=== PATIENT | male | born 1990 | race Caucasian/White ===

== ENCOUNTER 2016-09-25 23:20 | Emergency (ER) | payer SELFPAY ==
[2016-09-26] MEDS ORDERED: Ibuprofen TAB* 400 MG PO ONE (01:40)
[2016-09-26 02:08] VITALS: BP 130/58
--- NOTE | 2016-09-26 19:57 | ED ---
Han Vila Billy, scribed for Renzo Crow MD on 09/26/16 at 0139 . Substance Abuse/Use - HPI Summary HPI Summary: Patient is a 26 year-old male coming to [facility] with concerns of heroin overdose and URI symptoms. He states that he uses heroin intermittently, last used 3 hours [employer]. He uses clean needles. He reports hot flashes, sweating, nausea, vomiting, headache, and subjective fever. - History Of Current Complaint Chief Complaint: EDSubstanceAbuse Stated Complaint: HEROIN/NOT FEELING WELL Time Seen by Provider: 09/26/16 00:40 Hx Obtained From: Patient Ingestion History: Type/Name Of Drug - heroin Overdose Characteristics: IV Timing Of Abuse: Intermittent Severity Initially: Moderate Severity Currently: Moderate Aggravating Factor(s): Nothing Alleviating Factor(s): Nothing Associated Signs And Symptoms: Diaphoretic, Tremulous, Nausea, Vomiting, Other: - fever - Allergies/Home Medications Allergies/Adverse Reactions: Allergies Allergy/AdvReac Type Severity Reaction Status Date / Time No Known Allergies Allergy Verified 09/26/16 00:29 PMH/Surg Hx/FS Hx/Imm Hx Musculoskeletal History: Reports: Hx of Fracture(s) Psychiatric History: Reports: Hx Substance Abuse - Immunization History Date of Tetanus Vaccine: utd Infectious Disease History: No Infectious Disease History: Denies: Traveled Outside the [place] in Last 30 Days - Family History Known Family History: Negative: Cardiac Disease, Diabetes - Social History Alcohol Use: Occasionally Substance Use Type: Reports: Heroin Substance Use Comment - Amount & Last Used: Sober since 12/26/13 Smoking Status (MU): Current Every Day Smoker Review of Systems Positive: Fever, Skin Diaphoresis Negative: Erythema Negative: Sore Throat Negative: Chest Pain Negative: Shortness Of Breath, Cough Positive: Vomiting, Nausea. Negative: Abdominal Pain Negative: Myalgia, Edema Negative: Rash Positive: Headache All Other Systems Reviewed And Are Negative: Yes Physical Exam - Summary Physical Exam Summary: Constitutional: Well-developed, Well-nourished, Alert. (-) Distressed Skin: Warm, Dry HENT: Normocephalic; Atraumatic Eyes: Conjunctiva normal Neck: Musculoskeletal ROM normal neck. (-) JVD, (-) Stridor, (-) Tracheal deviation Cardio: Rhythm regular, rate normal, Heart sounds normal; Intact distal pulses; The pedal pulses are 2+ and symmetric. Radial pulses are 2+ and symmetric. (-) Murmur Pulmonary/Chest wall: Effort normal. (-) Respiratory distress, (-) Wheezes, (-) Rales Abd: Soft, (-) Tenderness, (-) Distension, (-) Guarding, (-) Rebound Musculoskeletal: (-) Edema Lymph: (-) Cervical adenopathy Neuro: Alert, Oriented x3 Psych: Mood and affect Normal Triage Information Reviewed: Yes Vital Signs On Initial Exam: Initial Vitals Temp Pulse Resp BP Pulse Ox 99.4 F 108 16 140/69 98 09/25/16 23:25 09/25/16 23:25 09/25/16 23:25 09/25/16 23:25 09/25/16 23:25 Vital Signs Reviewed: Yes - Lex Coma Scale Coma Scale Total: 15 Diagnostics - Vital Signs Vital Signs Temp Pulse Resp BP Pulse Ox 09/26/16 00:29 99.5 F 80 18 125/74 97 09/25/16 23:25 99.4 F 108 16 140/69 98 - Laboratory Lab Statement: Any lab studies that have been ordered have been reviewed, and results considered in the medical decision making process. Course/Dx - Course Assessment/Plan: 26 [facility] and URI-like symptoms. Patient was given ibuprofen in the ED. Patient will be discharged home to follow up with PCP. - Diagnoses Provider Diagnoses: URI (upper respiratory infection) Discharge - Discharge Plan Condition: Stable Disposition: HOME Patient Education Materials: Upper Respiratory Infection (ED) Forms: *Work Release Referrals: [facility] PHYSICIAN REFERRAL [Outside] Additional Instructions: RETURN TO THE EMERGENCY DEPARTMENT WITH WORSENING SYMPTOMS SUCH STIFF NECK, FEVERS, CHILLS, CHEST PAIN, OR SHORTNESS OF BREATH. The documentation as recorded by the Han tierney Billy accurately reflects the service I personally performed and the decisions made by , Renzo Crow MD.
== END 2016-09-26 02:08 | disposition home or self-care (01) ==
LOC: ED 23:20
DX: J06.9 Acute upper respiratory infection, unspecified (principal); R11.2 Nausea with vomiting, unspecified; R25.1 Tremor, unspecified; R51 Headache; R50.9 Fever, unspecified; F17.210 Nicotine dependence, cigarettes, uncomplicated
CPT/HCPCS: 99282; A9270-GY

== ENCOUNTER 2019-08-21 18:31 | Emergency (ER) | payer SELFPAY ==
[2019-08-21] MEDS ORDERED: Ketorolac INJ* 30 MG/ML 1 ML VIAL IV PUSH ONE (20:21)
[2019-08-21] MEDS ORDERED: Pantoprazole IV* 40 MG IV ONE (20:21)
[2019-08-21] MEDS ORDERED: Ondansetron INJ* 2 MG/ML VIAL IV ONE (20:21)
[2019-08-21] MEDS ORDERED: NS 0.9% 1000 ML** 1,000 ML IV ONE (20:21)
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
[2019-08-21 20:54] LABS: Urine Appearance Clear; Urine Bilirubin Negative (Negative); Urine Blood Negative (Negative); Urine Color Yellow; Urine Glucose Negative (Negative); Urine Ketones Negative (Negative); Urine Nitrite Negative (Negative); Urine Protein Negative (Negative); Urine Specific Gravity 1.027 (1.010-1.030); Urine Urobilinogen Negative (Negative)
[2019-08-21 21:05] LABS: ABS Lymphocytes 1.3 10^3/ul (1.0-4.8); ABS Monocytes 0.5 10^3/ul (0-0.8); ABS Neutrophils 3.2 10^3/ul (1.5-7.7); Eosinophil % 0.3 %; Hematocrit 46 % (42-52); Lymphocyte % 25.1 %; Mean Corpuscular HGB Conc 35 g/dL (31-36); Mean Corpuscular Hemoglobin 30 pg (27-31); Mean Corpuscular Volume 86 fL (80-94); Mean Platelet Volume 7.1 fL (7.4-10.4); Nucleated Red Blood Cells % 0.1; Platelet Count 185 10^3/uL (150-450); Red Blood Count 5.33 10^6 /uL (4.18-5.48); Red Cell Distribution Width 13 % (10-15)
[2019-08-21 21:08] LABS: Influenza B Molecular POSITIVE (Negative)
[2019-08-21 21:21] LABS: Albumin 4.2 g/dL (3.2-5.2); Albumin/Globulin Ratio 1.4 (1-3); BUN/Creatinine Ratio 15.1 (8-20); C Reactive Protein 11.07 mg/L (<8.01); Calcium 9.2 mg/dL (8.6-10.3); EGFR African American 128.1 (>60); EGFR Non-African American 105.9 (>60); Globulin 2.9 g/dL (2-4); Potassium 3.6 mmol/L (3.5-5.0); Total Bilirubin 0.5 mg/dL (0.2-1.0); Total Protein 7.1 g/dL (6.4-8.9)
[2019-08-21] MEDS ORDERED: Acetaminophen TAB* 325 MG PO ONE (21:37)
[2019-08-21 22:40] VITALS: BP 114/69
== END 2019-08-21 22:39 | disposition home or self-care (01) ==
LOC: ED 18:31
DX: J11.1 Influenza due to unidentified influenza virus with other respiratory manifestations (principal); F17.200 Nicotine dependence, unspecified, uncomplicated
CPT/HCPCS: 36415; 71045; 80053; 81003; 83605; 83690; 85025; 86140; 96361; 96374; 96375; 99283; A9270-GY; J1885; J2405

== ENCOUNTER 2019-09-19 13:33 | Emergency (ER) | payer SELFPAY ==
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
[2019-09-19] MEDS ORDERED: Lidocaine PATCH 5%* 1 PATCH TRANSDERM SCH (14:15)
[2019-09-19 15:19] VITALS: BP 135/81
[2019-09-19] MEDS ORDERED: Lidocaine Patch REMOVE* 1 NOTE MISC SCH ×2 (21:00)
== END 2019-09-19 15:17 | disposition home or self-care (01) ==
LOC: ED 13:33
DX: M25.512 Pain in left shoulder (principal); R07.81 Pleurodynia; V44.5XXA Car driver injured in collision with heavy transport vehicle or bus in traffic accident, initial encounter; Y92.410 Unspecified street and highway as the place of occurrence of the external cause; F19.10 Other psychoactive substance abuse, uncomplicated; F17.210 Nicotine dependence, cigarettes, uncomplicated
CPT/HCPCS: 71046; 99282

== ENCOUNTER 2022-07-11 10:55 | Inpatient (IN) ==
[2022-07-11] MEDS ORDERED: NS 0.9% 1000 ml BAG 1,000 ML IV ONE (13:06)
[2022-07-11] MEDS ORDERED: Cefepime 1 GM in Dextrose 1 GM/50 ML BAG IV ONE (13:06)
[2022-07-11 15:04] LABS: ABS Lymphocytes 1.8 10^3/ul (1.0-4.8); ABS Monocytes 1.2 10^3/ul (0-0.8); ABS Neutrophils 6.5 10^3/ul (1.5-7.7); Eosinophil % 0.4 %; Hematocrit 38 % (42-52); Hemoglobin 13.2 g/dL (14.0-18.0); Lymphocyte % 19.2 %; Mean Corpuscular HGB Conc 34 g/dL (31-36); Mean Corpuscular Hemoglobin 29 pg (27-31); Mean Corpuscular Volume 84 fL (80-94); Mean Platelet Volume 6.4 fL (7.4-10.4); Platelet Count 322 10^3/uL (150-450); Red Blood Count 4.56 10^6 /uL (4.18-5.48); Red Cell Distribution Width 13 % (10-15); White Blood Count 9.6 10^3/uL (3.5-10.8)
[2022-07-11 15:12] LABS: INR 1.29 (0.88-1.18)
[2022-07-11 15:32] LABS: C Reactive Protein 129.73 mg/L (<8.01)
[2022-07-11] MEDS ORDERED: Vancomycin per Pharmacy 1 EA NOTE FOLLOW UP PRN (16:16)
[2022-07-11 16:25] LABS: High Sensitivity Troponin 1 Hr 3 pg/mL (<20)
[2022-07-11 16:46] LABS: Albumin 3.4 g/dL (3.2-5.2); Albumin/Globulin Ratio 1.3 (1-3); Calcium 8.8 mg/dL (8.6-10.3); Creatinine, Serum 0.58 mg/dL (0.67-1.17); Globulin 2.7 g/dL (2-4); Potassium 4.4 mmol/L (3.5-5.0); Total Bilirubin 0.4 mg/dL (0.2-1.0); Total Protein 6.1 g/dL (6.4-8.9); eGFR CKD-EPI 133.7 (>60)
[2022-07-11] MEDS ORDERED: Vancomycin 1,250 MG in NS 0.9% 250 ml 250 ML IVPB ONE (17:00)
[2022-07-11] MEDS: Ondansetron ODT 4 mg TAB 4 MG TAB PO SCH (20:03)
[2022-07-12] MEDS: Ondansetron ODT 4 mg TAB 4 MG TAB PO SCH ×5 (00:21→23:58)
[2022-07-12] MEDS ORDERED: Cefepime ADVAN 1 GM in NS 0.9% 50 ML 50 ML IVPB SCH (01:00)
[2022-07-12] MEDS: Cefepime 1 GM in Dextrose 1 GM/50 ML BAG IV SCH ×2 (03:00→15:00)
[2022-07-12] MEDS: Vancomycin 1,250 MG in NS 0.9% 250 ml 250 ML IVPB SCH ×3 (04:22→22:01)
[2022-07-12 04:32] LABS: Urine Benzodiazepine Screen None Detected (None Detect); Urine Cannabinoids Screen None Detected (None Detect); Urine Opiates Screen None Detected (None Detect)
[2022-07-12 06:28] LABS: ABS Eosinophils 0.1 10^3/ul (0-0.6); ABS Lymphocytes 2.1 10^3/ul (1.0-4.8); ABS Monocytes 0.9 10^3/ul (0-0.8); ABS Neutrophils 3.8 10^3/ul (1.5-7.7); Eosinophil % 1.3 %; Hematocrit 36 % (42-52); Hemoglobin 12.5 g/dL (14.0-18.0); Lymphocyte % 30.4 %; Mean Corpuscular HGB Conc 35 g/dL (31-36); Mean Corpuscular Hemoglobin 29 pg (27-31); Mean Corpuscular Volume 84 fL (80-94); Nucleated Red Blood Cells % 0.1; Platelet Count 284 10^3/uL (150-450); Red Blood Count 4.31 10^6 /uL (4.18-5.48); Red Cell Distribution Width 13 % (10-15); White Blood Count 6.9 10^3/uL (3.5-10.8)
[2022-07-12 06:52] LABS: C Reactive Protein 113.2 mg/L (<8.01); Calcium 8.4 mg/dL (8.6-10.3); Creatinine, Serum 0.62 mg/dL (0.67-1.17); Potassium 3.9 mmol/L (3.5-5.0); eGFR CKD-EPI 131.1 (>60)
[2022-07-12] MEDS: DULoxetine DR 30 mg CAP PO SCH (07:59)
[2022-07-12] MEDS: Nicotine PATCH 14 MG/24 HR PATCH TRANSDERM SCH (13:16)
[2022-07-13] MEDS: Cefepime 1 GM in Dextrose 1 GM/50 ML BAG IV SCH ×2 (03:15→17:16)
[2022-07-13] MEDS: Vancomycin 1,250 MG in NS 0.9% 250 ml 250 ML IVPB SCH ×3 (04:09→21:12)
[2022-07-13] MEDS: Ondansetron ODT 4 mg TAB 4 MG TAB PO SCH ×3 (05:22→17:28)
[2022-07-13] MEDS: DULoxetine DR 30 mg CAP PO SCH (09:22)
[2022-07-13] MEDS: Nicotine PATCH 14 MG/24 HR PATCH TRANSDERM SCH (09:22)
[2022-07-13] MEDS ORDERED: Vancomycin Trough Check NOTE FOLLOW UP ONE (11:30)
[2022-07-13 12:51] LABS: Creatinine, Serum 0.55 mg/dL (0.67-1.17); Vancomycin Trough 11.1 mcg/mL; eGFR CKD-EPI 135.9 (>60)
[2022-07-14] MEDS: Ondansetron ODT 4 mg TAB 4 MG TAB PO SCH ×6 (00:04→23:30)
[2022-07-14] MEDS: Cefepime 1 GM in Dextrose 1 GM/50 ML BAG IV SCH ×2 (03:12→16:00)
[2022-07-14] MEDS: Vancomycin 1,250 MG in NS 0.9% 250 ml 250 ML IVPB SCH ×3 (04:10→21:11)
[2022-07-14 08:46] LABS: C Reactive Protein 100.15 mg/L (<8.01)
[2022-07-14] MEDS: DULoxetine DR 30 mg CAP PO SCH (08:46)
[2022-07-14] MEDS: Nicotine PATCH 14 MG/24 HR PATCH TRANSDERM SCH (08:47)
[2022-07-14] MEDS: Nicotine GUM 2MG FRUIT FLAVOR PO PRN (08:53)
[2022-07-14] MEDS ORDERED: Polyethylene Glycol 3350 17 GM PACKET PO PRN (09:05)
[2022-07-14] MEDS ORDERED: LORazepam 2 mg VIAL 1 ml IV PUSH ONE (14:16)
[2022-07-14] MEDS ORDERED: Lorazepam PYXIS KEY PRN (14:16)
[2022-07-15] MEDS: Cefepime 1 GM in Dextrose 1 GM/50 ML BAG IV SCH ×2 (02:49→13:27)
[2022-07-15] MEDS ORDERED: Vancomycin Trough Check NOTE FOLLOW UP ONE (05:30)
[2022-07-15] MEDS ORDERED: Buffered Lidocaine 1% SYRIN 1 ml INTRADERM ONE (06:00)
[2022-07-15 06:15] LABS: Creatinine, Serum 0.54 mg/dL (0.67-1.17); Vancomycin Trough 10.9 mcg/mL; eGFR CKD-EPI 136.6 (>60)
[2022-07-15] MEDS: Lactated Ringers 1000 ml BAG 1,000 ML IV SCH (06:36)
[2022-07-15] MEDS: Vancomycin 1,250 MG in NS 0.9% 250 ml 250 ML IVPB SCH ×3 (06:39→22:27)
[2022-07-15] MEDS: Ondansetron ODT 4 mg TAB 4 MG TAB PO SCH ×3 (06:41→17:31)
[2022-07-15] MEDS ORDERED: fentaNYL 100 mcg/2 ml 50 MCG/ML VIAL IV PRN (09:15)
[2022-07-15] MEDS ORDERED: Prochlorperazine 5 mg/ml 2 ml VIAL (10 mg) IV PRN (09:15)
[2022-07-15] MEDS ORDERED: Naloxone 0.4 mg VIAL 0.4 mg/ml 1 ml VIAL IV PRN (09:15)
[2022-07-15] MEDS: Nicotine PATCH 14 MG/24 HR PATCH TRANSDERM SCH (09:24)
[2022-07-15] MEDS: DULoxetine DR 30 mg CAP PO SCH (09:25)
[2022-07-15] MEDS: Nicotine GUM 2MG FRUIT FLAVOR PO PRN (09:26)
[2022-07-15] MEDS ORDERED: Bupivacaine 0.5% SDV PF 30ML VIAL ONE (11:45)
[2022-07-15] MEDS ORDERED: Ondansetron 4 mg VIAL 2 MG/ML 2 ml VIAL ONE (12:38)
[2022-07-15] MEDS ORDERED: Propofol 10 MG/ML 20 ML BTL ONE ×2 (12:38→13:15)
[2022-07-15] MEDS ORDERED: Dexamethasone IV 4 MG/ML VIAL 1 ml VIAL ONE (12:38)
[2022-07-15] MEDS ORDERED: fentaNYL 100 mcg/2 ml 50 MCG/ML VIAL ONE ×2 (12:40→16:26)
[2022-07-15] MEDS ORDERED: Lidocaine 2% PF 5 ML VIAL ONE (12:44)
[2022-07-15] MEDS ORDERED: Midazolam 2 mg/2 ml VIAL 1 mg/ml 2 ml VIAL (2 mg) ONE (13:13)
[2022-07-15] MEDS ORDERED: Ketamine HCL 50 mg/ml 10 ml VIAL (500 MG) ONE (13:16)
[2022-07-15] MEDS ORDERED: Cefepime 1 GM in Dextrose 1 GM/50 ML BAG IV ONE (16:20)
[2022-07-16] MEDS: Ondansetron ODT 4 mg TAB 4 MG TAB PO SCH ×5 (00:36→23:30)
[2022-07-16] MEDS: Lactated Ringers 1000 ml BAG 1,000 ML IV SCH (01:54)
[2022-07-16] MEDS: Cefepime 2 GM in Dextrose 2 GM/50 ML BAG IV SCH ×2 (03:41→15:40)
[2022-07-16] MEDS: Vancomycin 1,250 MG in NS 0.9% 250 ml 250 ML IVPB SCH ×3 (05:06→21:11)
[2022-07-16 07:10] LABS: ABS Basophils 0.1 10^3/ul (0-0.2); ABS Lymphocytes 1.3 10^3/ul (1.0-4.8); ABS Monocytes 0.7 10^3/ul (0-0.8); ABS Neutrophils 6.4 10^3/ul (1.5-7.7); Eosinophil % 0.2 %; Hematocrit 37 % (42-52); Hemoglobin 12.7 g/dL (14.0-18.0); Lymphocyte % 15.8 %; Mean Corpuscular HGB Conc 34 g/dL (31-36); Mean Corpuscular Hemoglobin 29 pg (27-31); Mean Corpuscular Volume 85 fL (80-94); Mean Platelet Volume 6.2 fL (7.4-10.4); Platelet Count 415 10^3/uL (150-450); Red Cell Distribution Width 13 % (10-15); White Blood Count 8.5 10^3/uL (3.5-10.8)
[2022-07-16 07:42] LABS: C Reactive Protein 40.92 mg/L (<8.01); Calcium 9.2 mg/dL (8.6-10.3); Creatinine, Serum 0.55 mg/dL (0.67-1.17); Potassium 4.5 mmol/L (3.5-5.0); eGFR CKD-EPI 135.9 (>60)
[2022-07-16] MEDS: DULoxetine DR 30 mg CAP PO SCH (08:30)
[2022-07-16] MEDS: Nicotine PATCH 14 MG/24 HR PATCH TRANSDERM SCH (08:33)
[2022-07-17] MEDS: Cefepime 2 GM in Dextrose 2 GM/50 ML BAG IV SCH ×2 (04:41→16:28)
[2022-07-17] MEDS: Ondansetron ODT 4 mg TAB 4 MG TAB PO SCH ×4 (04:42→23:33)
[2022-07-17] MEDS: Vancomycin 1,250 MG in NS 0.9% 250 ml 250 ML IVPB SCH ×3 (05:17→20:54)
[2022-07-17 08:13] LABS: ABS Eosinophils 0.1 10^3/ul (0-0.6); ABS Lymphocytes 0.9 10^3/ul (1.0-4.8); ABS Monocytes 0.3 10^3/ul (0-0.8); ABS Neutrophils 3.7 10^3/ul (1.5-7.7); Eosinophil % 1.9 %; Hematocrit 37 % (42-52); Hemoglobin 12.5 g/dL (14.0-18.0); Lymphocyte % 16.9 %; Mean Corpuscular HGB Conc 33 g/dL (31-36); Mean Corpuscular Hemoglobin 28 pg (27-31); Mean Corpuscular Volume 84 fL (80-94); Platelet Count 373 10^3/uL (150-450); Red Blood Count 4.46 10^6 /uL (4.18-5.48); Red Cell Distribution Width 13 % (10-15); White Blood Count 5.1 10^3/uL (3.5-10.8)
[2022-07-17] MEDS: Nicotine PATCH 14 MG/24 HR PATCH TRANSDERM SCH (10:13)
[2022-07-17] MEDS: DULoxetine DR 30 mg CAP PO SCH (10:14)
[2022-07-17] MEDS: Nicotine GUM 2MG FRUIT FLAVOR PO PRN (10:29)
[2022-07-18] MEDS: Cefepime 2 GM in Dextrose 2 GM/50 ML BAG IV SCH (04:34)
[2022-07-18] MEDS: Ondansetron ODT 4 mg TAB 4 MG TAB PO SCH ×3 (04:38→17:25)
[2022-07-18] MEDS: Vancomycin 1,250 MG in NS 0.9% 250 ml 250 ML IVPB SCH (05:12)
[2022-07-18 06:09] LABS: ABS Eosinophils 0.1 10^3/ul (0-0.6); ABS Lymphocytes 0.8 10^3/ul (1.0-4.8); ABS Monocytes 0.7 10^3/ul (0-0.8); Eosinophil % 1.4 %; Hematocrit 41 % (42-52); Hemoglobin 13.6 g/dL (14.0-18.0); Lymphocyte % 14.3 %; Mean Corpuscular HGB Conc 34 g/dL (31-36); Mean Corpuscular Hemoglobin 28 pg (27-31); Mean Corpuscular Volume 84 fL (80-94); Mean Platelet Volume 6.2 fL (7.4-10.4); Nucleated Red Blood Cells % 0.1; Platelet Count 333 10^3/uL (150-450); Red Blood Count 4.83 10^6 /uL (4.18-5.48); Red Cell Distribution Width 13 % (10-15); White Blood Count 5.5 10^3/uL (3.5-10.8)
[2022-07-18 06:24] LABS: C Reactive Protein 46.93 mg/L (<8.01); Creatinine, Serum 0.61 mg/dL (0.67-1.17); Potassium 4.1 mmol/L (3.5-5.0); Vancomycin Trough 22.8 mcg/mL; eGFR CKD-EPI 131.7 (>60)
[2022-07-18] MEDS: Nicotine PATCH 14 MG/24 HR PATCH TRANSDERM SCH (09:35)
[2022-07-18] MEDS: DULoxetine DR 30 mg CAP PO SCH (09:36)
[2022-07-18] MEDS: cefTRIAXone 2 gm/50 mL D5W 2 GM/50 ML BAG IV SCH (15:47)
[2022-07-19] MEDS: Ondansetron ODT 4 mg TAB 4 MG TAB PO SCH ×4 (00:27→17:42)
[2022-07-19] MEDS: DULoxetine DR 30 mg CAP PO SCH (08:45)
[2022-07-19] MEDS: Nicotine PATCH 14 MG/24 HR PATCH TRANSDERM SCH (08:47)
[2022-07-19] MEDS: cefTRIAXone 2 gm/50 mL D5W 2 GM/50 ML BAG IV SCH (16:22)
[2022-07-19] MEDS: Nicotine GUM 2MG FRUIT FLAVOR PO PRN (21:36)
[2022-07-20] MEDS: Ondansetron ODT 4 mg TAB 4 MG TAB PO SCH ×2 (00:30→05:42)
[2022-07-20 06:07] LABS: ABS Eosinophils 0.1 10^3/ul (0-0.6); ABS Lymphocytes 1.2 10^3/ul (1.0-4.8); ABS Monocytes 0.7 10^3/ul (0-0.8); ABS Neutrophils 3.2 10^3/ul (1.5-7.7); Eosinophil % 2.2 %; Hematocrit 43 % (42-52); Hemoglobin 14.2 g/dL (14.0-18.0); Mean Corpuscular HGB Conc 33 g/dL (31-36); Mean Corpuscular Hemoglobin 28 pg (27-31); Mean Corpuscular Volume 84 fL (80-94); Mean Platelet Volume 6.9 fL (7.4-10.4); Platelet Count 291 10^3/uL (150-450); Red Blood Count 5.05 10^6 /uL (4.18-5.48); Red Cell Distribution Width 13 % (10-15); White Blood Count 5.2 10^3/uL (3.5-10.8)
[2022-07-20 06:30] LABS: Calcium 9.4 mg/dL (8.6-10.3); Creatinine, Serum 0.62 mg/dL (0.67-1.17); Potassium 4.8 mmol/L (3.5-5.0); eGFR CKD-EPI 131.1 (>60)
[2022-07-20] MEDS ORDERED: Ondansetron ODT 4 mg TAB 4 MG TAB PO PRN (07:20)
[2022-07-20 07:42] VITALS: BP 145/99
[2022-07-20] MEDS: DULoxetine DR 30 mg CAP PO SCH (07:45)
[2022-07-20] MEDS: Nicotine PATCH 14 MG/24 HR PATCH TRANSDERM SCH (07:46)
[2022-07-20] MEDS: Nicotine GUM 2MG FRUIT FLAVOR PO PRN (07:51)
[2022-07-20] MEDS ORDERED: cefTRIAXone 2 gm/50 mL D5W 2 GM/50 ML BAG IV ONE (10:00)
== END 2022-07-20 11:20 | disposition home or self-care (01) | DRG 316 ==
LOC: ED 10:55 → EDHOLD 16:02 → SUATTDRO 16:02 → MED 18:22
PROVIDERS: ADMIT Internal Medicine; ATTEND Hospitalist

== ENCOUNTER 2024-04-07 00:43 | Inpatient (IN) ==
[2024-04-07] MEDS: Lactated Ringers 1000 ml BAG 1,000 ML IV ONE (09:05)
[2024-04-07] MEDS: Cefepime 1 GM in Dextrose 1 GM/50 ML BAG IV ONE (09:30)
[2024-04-07] MEDS: Vancomycin 1,250 MG in NS 0.9% 250 ml 250 ML IVPB ONE (10:32)
[2024-04-07] MEDS ORDERED: Al Hydrox/Mg Hydrox/Simet LIQ 30 ML UDC PO PRN (14:50)
[2024-04-07] MEDS ORDERED: Vancomycin per Pharmacy 1 EA NOTE FOLLOW UP SCH (15:00)
[2024-04-07] MEDS ORDERED: Sulfur Hexaflouride MICROSPHR 25 MG VIAL IV PRN (16:28)
[2024-04-07] MEDS ORDERED: Ondansetron 4 mg VIAL 2 MG/ML 2 ml VIAL IV PRN (16:29)
[2024-04-07] MEDS ORDERED: Ondansetron ODT 4 mg TAB 4 MG TAB PO PRN (16:29)
[2024-04-07] MEDS: Vancomycin 1,250 MG in NS 0.9% 250 ml 250 ML IVPB SCH (18:27)
[2024-04-07 19:13] LABS: ABS Basophils 0.1 10^3/uL (0.0-0.1); ABS Eosinophils 0.2 10^3/uL (0.0-0.5); ABS Lymphocytes 2.4 10^3/uL (1.0-4.8); ABS Monocytes 0.7 10^3/uL (0.0-1.1); ABS Neutrophils 6.3 10^3/uL (1.5-7.6); Eosinophil % 1.7 %; Hematocrit 41.2 % (38-53); Hemoglobin 13.8 g/dL (13.2-16.3); Lymphocyte % 25.2 %; Mean Corpuscular Hemoglobin 28.1 pg (27-33); Mean Corpuscular Hgb Conc 33.5 g/dL (31-36); Mean Corpuscular Volume 83.8 fL (80-97); Mean Platelet Volume 6.4 fL (7.5-11.2); Platelet Count 628 10^3/uL (150-450); Red Blood Count 4.92 10^6/uL (4.06-5.63); White Blood Count 9.6 10^3/uL (3.6-10.2)
[2024-04-07 19:53] LABS: Albumin 3.7 g/dL (3.2-5.2); Calcium 9.5 mg/dL (8.6-10.3); Creatinine, Serum 0.96 mg/dL (0.67-1.17); Globulin 3.8 g/dL (2-4); Potassium 4.6 mmol/L (3.5-5.0); Total Bilirubin 0.3 mg/dL (0.2-1.0); Total Protein 7.5 g/dL (6.4-8.9); eGFR CKD-EPI 107.7 (>60)
[2024-04-08] MEDS: Vancomycin 1,250 MG in NS 0.9% 250 ml 250 ML IVPB SCH (03:45)
[2024-04-08] MEDS: Enoxaparin 40 MG/0.4 ML SYR SUBCUT SCH (08:30)
[2024-04-08 10:01] LABS: ABS Basophils 0.1 10^3/uL (0.0-0.1); ABS Eosinophils 0.1 10^3/uL (0.0-0.5); ABS Monocytes 0.5 10^3/uL (0.0-1.1); ABS Neutrophils 6.5 10^3/uL (1.5-7.6); Eosinophil % 1.4 %; Hematocrit 40.7 % (38-53); Hemoglobin 13.7 g/dL (13.2-16.3); Lymphocyte % 21.3 %; Mean Corpuscular Hemoglobin 28.1 pg (27-33); Mean Corpuscular Hgb Conc 33.6 g/dL (31-36); Mean Corpuscular Volume 83.5 fL (80-97); Mean Platelet Volume 6.2 fL (7.5-11.2); Platelet Count 623 10^3/uL (150-450); Red Blood Count 4.87 10^6/uL (4.06-5.63); Red Cell Distribution Width 12.7 % (12-17); White Blood Count 9.2 10^3/uL (3.6-10.2)
[2024-04-08 10:35] LABS: Albumin 3.6 g/dL (3.2-5.2); Calcium 9.7 mg/dL (8.6-10.3); Creatinine, Serum 0.71 mg/dL (0.67-1.17); Globulin 3.7 g/dL (2-4); Magnesium 2.1 mg/dL (1.9-2.7); Potassium 4.5 mmol/L (3.5-5.0); Total Bilirubin 0.4 mg/dL (0.2-1.0); Total Protein 7.3 g/dL (6.4-8.9)
[2024-04-08] MEDS: Vancomycin Trough Check NOTE FOLLOW UP ONE (11:06)
[2024-04-08] MEDS: COWS Protocol Daily Order Reminder FOLLOW UP SCH ×2 (23:58)
[2024-04-09] MEDS: Vancomycin 1,250 MG in NS 0.9% 250 ml 250 ML IVPB SCH (05:16)
[2024-04-09 06:21] LABS: ABS Basophils 0.1 10^3/uL (0.0-0.1); ABS Eosinophils 0.1 10^3/uL (0.0-0.5); ABS Lymphocytes 3.1 10^3/uL (1.0-4.8); ABS Monocytes 0.6 10^3/uL (0.0-1.1); ABS Neutrophils 4.1 10^3/uL (1.5-7.6); ABS Nucleated RBC 0.01 10^3/ul; Eosinophil % 1.6 %; Hematocrit 40.6 % (38-53); Hemoglobin 13.9 g/dL (13.2-16.3); Lymphocyte % 38.3 %; Mean Corpuscular Hemoglobin 28.5 pg (27-33); Mean Corpuscular Hgb Conc 34.3 g/dL (31-36); Mean Corpuscular Volume 83.2 fL (80-97); Mean Platelet Volume 6.2 fL (7.5-11.2); Nucleated Red Blood Cells % 0.1 %/100WBC (0.0-0.8); Platelet Count 579 10^3/uL (150-450); Red Blood Count 4.88 10^6/uL (4.06-5.63); Red Cell Distribution Width 12.9 % (12-17)
[2024-04-09 06:47] LABS: Calcium 9.2 mg/dL (8.6-10.3); Creatinine, Serum 0.71 mg/dL (0.67-1.17); Magnesium 2.2 mg/dL (1.9-2.7); Potassium 4.5 mmol/L (3.5-5.0)
[2024-04-10 06:45] LABS: ABS Basophils 0.1 10^3/uL (0.0-0.1); ABS Eosinophils 0.2 10^3/uL (0.0-0.5); ABS Lymphocytes 3.2 10^3/uL (1.0-4.8); ABS Monocytes 0.7 10^3/uL (0.0-1.1); ABS Neutrophils 5.7 10^3/uL (1.5-7.6); Eosinophil % 1.7 %; Hematocrit 39.5 % (38-53); Hemoglobin 13.2 g/dL (13.2-16.3); Lymphocyte % 31.9 %; Mean Corpuscular Hemoglobin 28.2 pg (27-33); Mean Corpuscular Hgb Conc 33.4 g/dL (31-36); Mean Corpuscular Volume 84.3 fL (80-97); Mean Platelet Volume 6.4 fL (7.5-11.2); Platelet Count 523 10^3/uL (150-450); Red Blood Count 4.69 10^6/uL (4.06-5.63); White Blood Count 9.9 10^3/uL (3.6-10.2)
[2024-04-10 08:14] LABS: Creatinine, Serum 0.71 mg/dL (0.67-1.17); Potassium 4.5 mmol/L (3.5-5.0)
[2024-04-10 08:15] LABS: Calcium 9.1 mg/dL (8.6-10.3); Magnesium 2.2 mg/dL (1.9-2.7)
[2024-04-10 10:35] LABS: Creatinine, Serum 0.73 mg/dL (0.67-1.17)
[2024-04-10] MEDS: Vancomycin Trough Check NOTE FOLLOW UP ONE (14:50)
[2024-04-11 07:00] LABS: ABS Basophils 0.2 10^3/uL (0.0-0.1); ABS Eosinophils 0.2 10^3/uL (0.0-0.5); ABS Monocytes 0.9 10^3/uL (0.0-1.1); ABS Neutrophils 8.5 10^3/uL (1.5-7.6); Eosinophil % 1.3 %; Hematocrit 40.4 % (38-53); Hemoglobin 13.7 g/dL (13.2-16.3); Lymphocyte % 23.4 %; Mean Corpuscular Hemoglobin 28.6 pg (27-33); Mean Corpuscular Hgb Conc 33.9 g/dL (31-36); Mean Corpuscular Volume 84.4 fL (80-97); Mean Platelet Volume 6.6 fL (7.5-11.2); Platelet Count 521 10^3/uL (150-450); Red Blood Count 4.79 10^6/uL (4.06-5.63); Red Cell Distribution Width 13.1 % (12-17); White Blood Count 12.7 10^3/uL (3.6-10.2)
[2024-04-11 07:30] LABS: Calcium 9.5 mg/dL (8.6-10.3); Creatinine, Serum 0.8 mg/dL (0.67-1.17); Magnesium 2.3 mg/dL (1.9-2.7); eGFR CKD-EPI 120.6 (>60)
[2024-04-11 08:43] LABS: High Sensitivity Troponin 1 Hr 3 pg/mL (<20)
[2024-04-12 07:31] LABS: ABS Basophils 0.1 10^3/uL (0.0-0.1); ABS Eosinophils 0.1 10^3/uL (0.0-0.5); ABS Lymphocytes 2.8 10^3/uL (1.0-4.8); ABS Monocytes 0.8 10^3/uL (0.0-1.1); ABS Neutrophils 6.2 10^3/uL (1.5-7.6); ABS Nucleated RBC 0.01 10^3/ul; Eosinophil % 1.4 %; Hematocrit 39.2 % (38-53); Hemoglobin 13.4 g/dL (13.2-16.3); Lymphocyte % 27.8 %; Mean Corpuscular Hemoglobin 28.9 pg (27-33); Mean Corpuscular Hgb Conc 34.2 g/dL (31-36); Mean Corpuscular Volume 84.3 fL (80-97); Nucleated Red Blood Cells % 0.1 %/100WBC (0.0-0.8); Platelet Count 447 10^3/uL (150-450); Red Blood Count 4.65 10^6/uL (4.06-5.63); Red Cell Distribution Width 13.1 % (12-17)
[2024-04-12] MEDS: Nicotine PATCH 7 MG/24 HR PATCH TRANSDERM SCH (18:02)
[2024-04-13] MEDS: Vancomycin Trough Check NOTE FOLLOW UP ONE (12:53)
[2024-04-14 12:50] LABS: Creatinine, Serum 0.75 mg/dL (0.67-1.17); eGFR CKD-EPI 122.2 (>60)
[2024-04-14] MEDS: Vancomycin Trough Check NOTE FOLLOW UP ONE (13:27)
[2024-04-15 11:42] LABS: Ferritin 123.7 ng/mL (24-336)
[2024-04-16 08:22] LABS: Creatinine, Serum 0.64 mg/dL (0.67-1.17); eGFR CKD-EPI 128.2 (>60)
[2024-04-16 10:52] VITALS: BP 113/65
[2024-04-17] MEDS ORDERED: Vancomycin Trough Check NOTE FOLLOW UP ONE (12:30)
== END 2024-04-16 11:56 | disposition swing bed (61) | DRG 193 ==
LOC: ED 00:43 → EDHOLD 14:50 → SUATTDRO 16:10 → EDHOLD 16:10 → MEDTELE 20:03
PROVIDERS: ADMIT Internal Medicine; ATTEND Student in an Organized Health Care Education/Training Program

== ENCOUNTER 2024-04-16 12:05 | Inpatient (IN) ==
[2024-04-16] MEDS ORDERED: Al Hydrox/Mg Hydrox/Simet LIQ 30 ML UDC PO PRN (13:18)
[2024-04-16] MEDS ORDERED: Vancomycin per Pharmacy 1 EA NOTE FOLLOW UP SCH (14:00)
[2024-04-16] MEDS: Nicotine PATCH 7 MG/24 HR PATCH TRANSDERM SCH (14:18)
[2024-04-16] MEDS: Vancomycin 1,250 MG in NS 0.9% 250 ml 250 ML IVPB SCH (15:23)
[2024-04-16] MEDS: Enoxaparin 40 MG/0.4 ML SYR SUBCUT SCH (16:38)
[2024-04-16] MEDS ORDERED: ASA-APAP-CAFFEINE ES (NF) TAB PO SCH (23:00)
[2024-04-17] MEDS: Enoxaparin 40 MG/0.4 ML SYR SUBCUT SCH (10:19)
[2024-04-17] MEDS ORDERED: Vancomycin Trough Check NOTE FOLLOW UP ONE (13:30)
[2024-04-17] MEDS: Vancomycin 1,250 MG in NS 0.9% 250 ml 250 ML IVPB SCH (20:54)
[2024-04-18 12:05] LABS: Creatinine, Serum 0.66 mg/dL (0.67-1.17); Vancomycin Trough 15.3 mcg/mL
[2024-04-18] MEDS: Vancomycin Trough Check NOTE FOLLOW UP ONE (12:52)
[2024-04-18] MEDS: Lidocaine 1% MPF 5 ML VIAL INJ ONE (18:17)
[2024-04-18] MEDS: Nystatin TOP POWDER 15 GM BTL TOPICAL SCH (21:59)
[2024-04-21 12:37] LABS: Creatinine, Serum 0.74 mg/dL (0.67-1.17); Vancomycin Trough 18.6 mcg/mL; eGFR CKD-EPI 122.7 (>60)
[2024-04-21] MEDS: Vancomycin Trough Check NOTE FOLLOW UP ONE (13:29)
[2024-04-22] MEDS: Nystatin TOP POWDER 15 GM BTL TOPICAL SCH (04:33)
[2024-04-23 09:16] LABS: ABS Eosinophils 0.2 10^3/uL (0.0-0.5); ABS Lymphocytes 2.3 10^3/uL (1.0-4.8); ABS Monocytes 0.7 10^3/uL (0.0-1.1); ABS Neutrophils 2.7 10^3/uL (1.5-7.6); ABS Nucleated RBC 0.01 10^3/ul; Eosinophil % 3.4 %; Hematocrit 39.6 % (38-53); Hemoglobin 13.4 g/dL (13.2-16.3); Lymphocyte % 38.3 %; Mean Corpuscular Hemoglobin 28.2 pg (27-33); Mean Corpuscular Hgb Conc 33.8 g/dL (31-36); Mean Corpuscular Volume 83.6 fL (80-97); Mean Platelet Volume 6.6 fL (7.5-11.2); Nucleated Red Blood Cells % 0.1 %/100WBC (0.0-0.8); Platelet Count 293 10^3/uL (150-450); Red Blood Count 4.74 10^6/uL (4.06-5.63); Red Cell Distribution Width 13.1 % (12-17); White Blood Count 5.9 10^3/uL (3.6-10.2)
[2024-04-23 09:33] LABS: Albumin/Globulin Ratio 1.2 (1-3); C Reactive Protein 5.02 mg/L (<8.01); Calcium 9.5 mg/dL (8.6-10.3); Creatinine, Serum 0.82 mg/dL (0.67-1.17); Globulin 3.3 g/dL (2-4); Potassium 4.8 mmol/L (3.5-5.0); Total Bilirubin 0.3 mg/dL (0.2-1.0); Total Protein 7.3 g/dL (6.4-8.9); eGFR CKD-EPI 118.9 (>60)
[2024-04-26 12:17] LABS: Creatinine, Serum 0.76 mg/dL (0.67-1.17); Vancomycin Trough 17.3 mcg/mL; eGFR CKD-EPI 121.7 (>60)
[2024-04-26] MEDS: Vancomycin Trough Check NOTE FOLLOW UP SCH (12:50)
[2024-04-30 06:18] LABS: ABS Eosinophils 0.2 10^3/uL (0.0-0.5); ABS Lymphocytes 2.4 10^3/uL (1.0-4.8); ABS Monocytes 0.9 10^3/uL (0.0-1.1); ABS Neutrophils 3.6 10^3/uL (1.5-7.6); Eosinophil % 3.1 %; Hematocrit 39.7 % (38-53); Hemoglobin 13.5 g/dL (13.2-16.3); Lymphocyte % 33.1 %; Mean Corpuscular Hemoglobin 28.3 pg (27-33); Mean Corpuscular Hgb Conc 33.9 g/dL (31-36); Mean Corpuscular Volume 83.3 fL (80-97); Mean Platelet Volume 7.2 fL (7.5-11.2); Platelet Count 233 10^3/uL (150-450); Red Blood Count 4.77 10^6/uL (4.06-5.63); Red Cell Distribution Width 13.1 % (12-17); White Blood Count 7.1 10^3/uL (3.6-10.2)
[2024-04-30 06:45] LABS: C Reactive Protein 6.28 mg/L (<8.01); Magnesium 1.9 mg/dL (1.9-2.7)
[2024-04-30 17:08] LABS: Albumin 3.9 g/dL (3.2-5.2); Albumin/Globulin Ratio 1.3 (1-3); Calcium 9.4 mg/dL (8.6-10.3); Creatinine, Serum 0.69 mg/dL (0.67-1.17); Potassium 4.3 mmol/L (3.5-5.0); Total Bilirubin 0.3 mg/dL (0.2-1.0); Total Protein 6.9 g/dL (6.4-8.9); eGFR CKD-EPI 125.3 (>60)
[2024-04-30] MEDS: Lidocaine PATCH 5% PATCH TRANSDERM SCH (19:32)
[2024-05-01] MEDS: fentaNYL 100 mcg/2 ml 50 MCG/ML VIAL IV SLOW PU ONE (01:24)
[2024-05-01] MEDS ORDERED: Lactic Acid CR 12% (NF) 1 APPLIC TUBE TOPICAL SCH (12:00)
[2024-05-01] MEDS: Emollient Lotion 480 ml BTL TOPICAL SCH (14:09)
[2024-05-02] MEDS: Lidocaine 1% MPF 5 ML VIAL INJ ONE (19:48)
[2024-05-03] MEDS ORDERED: Vancomycin Trough Check NOTE FOLLOW UP SCH (11:30)
[2024-05-06] MEDS ORDERED: Sulfur Hexaflouride MICROSPHR 25 MG VIAL IV PRN (14:00)
[2024-05-07] MEDS: Vancomycin Trough Check NOTE FOLLOW UP SCH (12:23)
[2024-05-09 06:51] LABS: ABS Eosinophils 0.2 10^3/uL (0.0-0.5); ABS Lymphocytes 2.4 10^3/uL (1.0-4.8); ABS Neutrophils 2.5 10^3/uL (1.5-7.6); Eosinophil % 3.2 %; Hematocrit 42.3 % (38-53); Hemoglobin 14.6 g/dL (13.2-16.3); Lymphocyte % 38.8 %; Mean Corpuscular Hemoglobin 28.4 pg (27-33); Mean Corpuscular Hgb Conc 34.5 g/dL (31-36); Mean Corpuscular Volume 82.3 fL (80-97); Mean Platelet Volume 6.7 fL (7.5-11.2); Platelet Count 248 10^3/uL (150-450); Red Blood Count 5.14 10^6/uL (4.06-5.63); Red Cell Distribution Width 13.3 % (12-17); White Blood Count 6.2 10^3/uL (3.6-10.2)
[2024-05-09 07:20] LABS: C Reactive Protein 10.62 mg/L (<8.01); Calcium 9.4 mg/dL (8.6-10.3); Creatinine, Serum 0.65 mg/dL (0.67-1.17); Potassium 3.9 mmol/L (3.5-5.0); eGFR CKD-EPI 127.6 (>60)
[2024-05-09] MEDS ORDERED: Sulfur Hexaflouride MICROSPHR 25 MG VIAL IV PRN ×2 (08:00)
[2024-05-13 21:28] VITALS: BP 127/69
[2024-05-13] MEDS: Vancomycin 1,250 MG in NS 0.9% 250 ml 250 ML IVPB SCH (22:23)
== END 2024-05-14 09:00 | disposition left against medical advice (07) | DRG 193 ==
LOC: SUATTDRO 12:05 → MEDTELE 12:05
PROVIDERS: ATTEND Hospitalist